=== PATIENT | male | born 1980 | race Caucasian/White ===

== ENCOUNTER → 2016-06-03 | Outpatient (CLI) | payer OTHER ==
--- NOTE | 2016-06-03 15:23 | DX ---
Left Knee, 3 Views with Weightbearing, at 2:47 p.m. Clinical History: 36-year-old male who fell down on his left knee hitting the lateral side, but comp laining of pain along the medial tibial plateau. Rule out fracture. ICD-10 Diagnostic Code: S89.92XA. Comparison Study: None. Findings: Bone mineralization is preserved. There is no acute fracture or dislocation. The tibial pl ateau appears intact. There is some degenerative pinnacling of the medial and lateral tibial spines. Tiny posterior patellar spurs are seen. There is no patellofemoral joint space narrowing, tilting, or subluxation. There is no loose osteochondral body. It is equivocal whether there is a small amount o f fluid in the suprapatellar bursa. Impression: There is no acute osseous abnormality. If there is further clinical concern regarding the patient's knee pain, MR imaging is suggested. Results were discussed with Brigitte Moreno, Nurse Practitioner, at 4:15 p.m. on 06/03/16.
== END ==
LOC: BMCIMAGING 14:43
PROVIDERS: ATTEND Nurse Practitioner Adult Health
DX: M25.562 Pain in left knee (principal)

== ENCOUNTER 2017-04-21 10:57 | Emergency (ER) | payer OTHER ==
[2017-04-21 11:11] VITALS: RESP 16; TEMP 97.7
--- NOTE | 2017-04-21 15:33 | EDPHY ---
H & P Time Seen by Provider: 04/21/17 15:06 HPI/ROS: Chief complaint. Chest and back pain HPI. The patient is a 37-year-old male presents emergency department with 4 day history of burning posterior left shoulder pain that feels like sunburn. However it does radiate to the left anterior chest through the axilla as well. Symptoms are somewhat worse with deep breathing. He feels that he has just felt off with unusual sweating and waking up with drenched in sweat,. Low- grade fever and chills. No cough however. No shortness of breath. The pain is really constant and not worse with exertion. Patient had right Achilles surgery 1 month ago and then has had multiple business traveled plane trips. He was seen at urgent care and diagnosed with shingles but did not develop a rash. He has had shingles previously on his right hip about 2 years ago and this feels quite similar. ROS Constitutional. no fever/chills, no weakness Eyes. no problems with vision ENT. no sore throat, no nasal drainage Cardiovascular. Left chest pain Respiratory. no shortness of breath, no cough Abdominal. no abdominal pain, no nausea/vomiting, no diarrhea . no problems urinating MS. no calf pain/swelling, no neck/back pain, no joint pain Skin. no rash Lymph. no swollen glands Neuro. no headache, no dizziness, no difficulty walking or with speech Past Medical/Surgical History: The shingles in 2014, appendectomy, hernia repair, kidney stones, the knee and Achilles surgery. No significant family history for early coronary artery disease Social History: , nonsmoker, no alcohol Smoking Status: Never smoked Physical Exam: General Appearance: Alert well-developed male mild distress vital signs are stable Eyes: Pupils equal and round no pallor or injection. ENT, Mouth: Mucous membranes are moist. Respiratory: There are no retractions, lungs are clear to auscultation. Cardiovascular: Regular rate and rhythm. Gastrointestinal: Abdomen is soft and nontender, no masses, bowel sounds normal. Neurological: Awake and alert, sensory and motor exams grossly normal. Skin: There is a 1 cm in diameter somewhat vesicular rash to the left posterior shoulder with mild erythema. No other lesions are noted Musculoskeletal: Neck is supple nontender. Extremities symmetrical, full range of motion. Psychiatric: Patient is oriented X 3, there is no agitation. Constitutional: Initial Vital Signs Temperature (C) 36.5 C 04/21/17 11:00 Heart Rate 54 L 04/21/17 11:00 Respiratory Rate 16 04/21/17 11:00 Blood Pressure 146/97 H 04/21/17 11:00 O2 Sat (%) 98 04/21/17 11:00 O2 Delivery Mode Room Air Allergies/Adverse Reactions: No Known Allergies Allergy (Verified 04/21/17 11:06) Home Medications: Medication Instructions Recorded Acyclovir [Zovirax 200 mg (*)] 200 mg PO 04/21/17 FLUoxetine [PROzac] 10 mg PO 04/21/17 oxyCODONE/APAP 5/325 [Percocet 1 tab PO 04/21/17 5/325 (*)] oxyCODONE/APAP 5/325 [Percocet 1 tab PO Q4-6PRN PRN #14 tab 04/21/17 5/325] Medical Decision Making - Diagnostics EKG Interpretation: EKG interpreted by me shows normal sinus rhythm with normal interval and axis. QRS is normal there is no significant ST elevation or depression. There is no arrhythmia. Heart rate is 52 Imaging Results: Imaging Impressions Chest X-Ray 04/21/17 15:28 Impression: Query borderline-cardiac silhouette enlargement (versus "apparent" augmentation secondary to the portable AP technique). Procedures: IV normal saline. ED Course/Re-evaluation: Re-evaluation 5:00 p.m.. Patient is stable. The patient and I discussed imaging lab EKG results. We discussed treatment plan . He expresses understanding and agreement I consulted and discussed the case with Dr. Hull, infectious Disease, who agrees that patient can be symptomatic with shingles and yet not have significant lesions. Differential Diagnosis: I considered pulmonary embolus because of recent surgery and recent travel. I have considered acute coronary syndrome and pneumonia as well. I think this is likely partially treated shingles. - Data Points Laboratory Results: Laboratory Results 04/21/17 15:36 04/21/17 15:36 04/21/17 04/21/17 04/21/17 15:36 15:36 15:36 WBC 8.71 10^3/uL 10^3/uL (3.80-9.50) RBC 5.21 10^6/uL 10^6/uL (4.40-6.38) Hgb 15.8 g/dL g/dL (13.7-17.5) Hct 44.6 % % (40.0-51.0) MCV 85.6 fL fL (81.5-99.8) MCH 30.3 pg pg (27.9-34.1) MCHC 35.4 g/dL g/dL (32.4-36.7) RDW 12.1 % % (11.5-15.2) Plt Count 218 10^3/uL 10^3/uL (150-400) MPV 8.8 fL fL (8.7-11.7) Neut % (Auto) 55.9 % % (39.3-74.2) Lymph % (Auto) 34.7 % % (15.0-45.0) [place] % (Auto) 7.6 % % (4.5-13.0) Eos % (Auto) 0.6 % % (0.6-7.6) Baso % (Auto) 0.5 % % (0.3-1.7) Nucleat RBC Rel Count 0.0 % % (0.0-0.2) Absolute Neuts (auto) 4.88 10^3/uL 10^3/uL (1.70-6.50) Absolute Lymphs (auto) 3.02 10^3/uL H 10^3/uL (1.00-3.00) Absolute Monos (auto) 0.66 10^3/uL 10^3/uL (0.30-0.80) Absolute Eos (auto) 0.05 10^3/uL 10^3/uL (0.03-0.40) Absolute Basos (auto) 0.04 10^3/uL 10^3/uL (0.02-0.10) Absolute Nucleated RBC 0.00 10^3/uL 10^3/uL (0-0.01) Immature Gran % 0.7 % % (0.0-1.1) Immature Gran # 0.06 10^3/uL 10^3/uL (0.00-0.10) D-Dimer < 0.27 ug/mLFEU ug/mLFEU (0.00-0.50) Sodium 144 mEq/L mEq/L (134-144) Potassium 3.6 mEq/L mEq/L (3.5-5.2) Chloride 100 mEq/L mEq/L (97-110) Carbon Dioxide 30 mEq/l mEq/l (22-31) Anion Gap 14 mEq/L mEq/L (8-16) BUN 15 mg/dL mg/dL (7-23) Creatinine 0.9 mg/dL mg/dL (0.7-1.3) Estimated GFR > 60 Glucose 104 mg/dL H mg/dL (70-100) Calcium 9.7 mg/dL mg/dL (8.5-10.4) Troponin I < 0.012 ng/mL ng/mL (0.000-0.034) Departure - Departure Disposition: Home, Routine, Self-Care Clinical Impression: Herpes zoster Qualifiers: Herpes zoster complications: unspecified herpes zoster complication Qualified Code(s): B02.8 - Zoster with other complications Condition: Good Instructions: Shingles (ED) Additional Instructions: Continue Valtrex using 1 g 3 times daily. Oxycodone as needed for pain. Return for worsening symptoms. Follow up with your regular physician or Dr. Hull in the next 1-2 days. I will also give you Dr. Hull the infectious disease physicians name and telephone number. Referrals: UNK,UNK [Other] - As per Instructions Darrel Barrera MD [[facility] Primary Care Provider] - 1-2 days without fail Krish Hull MD [Medical Doctor] - 1-2 days without fail Prescriptions: oxyCODONE/APAP 5/325 [Percocet 5/325] 1 tab PO Q4-6PRN PRN #14 tab PRN Reason: Pain, Moderate
--- NOTE | 2017-04-21 15:42 | CPEKG ---
Heart Rate: 52 RR Interval: 1154 P-R Interval: 164 QRSD Interval: 108 QT Interval: 436 QTC Interval: 406 P [place]: 55 QRS [place]: 51 T Wave [place]: 16 EKG Severity - NORMAL ECG - EKG Impression: SINUS RHYTHM Electronically Signed By: Jhon Zarate 21-Apr-2017 17:57:35
[2017-04-21 15:50] LABS: % IMMATURE GRANULYOCYTES 0.7 % (0.0-1.1); ABSOLUTE IMMATURE GRANULOCYTES 0.06 10^3/uL (0.00-0.10); ADD DIFF? NO; ADD MORPH? NO; ADD SCAN? NO; ATYPICAL LYMPHOCYTE FLAG 0 (0-99); FRAGMENT RBC FLAG 0 (0-99); HEMATOCRIT 44.6 % (40.0-51.0); HEMOGLOBIN 15.8 g/dL (13.7-17.5); LEFT SHIFT FLG 0 (0-99); LIPEMIA HEMOLYSIS FLAG 90 (0-99); MEAN CELL HEMOGLOBIN 30.3 pg (27.9-34.1); MEAN CELL HEMOGLOBIN CONCENTR. 35.4 g/dL (32.4-36.7); MEAN CELL VOLUME 85.6 fL (81.5-99.8); MEAN PLATELET VOLUME 8.8 fL (8.7-11.7); PLATELET CLUMPS FLAG 0 (0-99); PLATELET COUNT 218 10^3/uL (150-400); RED BLOOD CELL COUNT 5.21 10^6/uL (4.40-6.38); RED CELL DISTRIBUTION WIDTH 12.1 % (11.5-15.2)
[2017-04-21 16:02] LABS: ANION GAP 14 mEq/L (8-16); CALCIUM 9.7 mg/dL (8.5-10.4); CARBON DIOXIDE 30 mEq/l (22-31); CHLORIDE 100 mEq/L (97-110); CREATININE 0.9 mg/dL (0.7-1.3); GLOMERULAR FILTRATION RATE > 60; GLUCOSE 104 mg/dL (70-100); POTASSIUM 3.6 mEq/L (3.5-5.2); SODIUM 144 mEq/L (134-144)
[2017-04-21 16:14] LABS: TROPONIN I < 0.012 ng/mL (0.000-0.034)
[2017-04-21 17:36] VITALS: BP 158/98; PULSE 51; O2SAT 95
== END 2017-04-21 17:36 | disposition home or self-care (01) ==
DX: B02.8 Zoster with other complications (principal)

== ENCOUNTER 2018-04-30 16:43 | Emergency (ER) | payer OTHER ==
[2018-04-30] MEDS ORDERED: KETOROLAC 30 MG/1 ML SDV IVP ONE (17:09)
[2018-04-30] MEDS ORDERED: METOCLOPRAMIDE 10 MG/2 ML VIAL IVP ONE (17:09)
[2018-04-30] MEDS ORDERED: DEXAMETHASONE 10 MG/ML VIAL IVP ONE (17:09)
[2018-04-30] MEDS ORDERED: NS 1,000 ML IV ONE (17:09)
[2018-04-30] MEDS ORDERED: DEXAMETHASONE 4 MG/ML VIAL ONE (17:14)
--- NOTE | 2018-04-30 17:15 | EDPHY ---
H & P Stated Complaint: Headache x7 days Time Seen by Provider: 04/30/18 17:01 HPI/ROS: CHIEF COMPLAINT: Headache x7 days HISTORY OF PRESENT ILLNESS: Patient is a 38-year-old man who comes to the emergency department complaining of headache for last 5-7 days. It is not improved despite Tylenol, ibuprofen caffeine. He was on a flight from [facility] to [facility] when it began. He then went to [place] and went to a urgent care who recommended he go to the ER to rule out hemorrhage but he ignored the advice. He returned home today and his who is a nurse here in the OR made him come to the ER. No GI symptoms. No fever. No trauma. The pain is primarily on the left side of his face and occasionally radiates down to his left upper teeth. No dental caries or swelling. No erythema. No tenderness. No claudication. No focal weakness or deficits. No photophobia. No history of migraines. No seizures. States that a few days ago had tingling in both hands. No difficulty ambulating. Severity: Moderate to severe Modifying factors: None REVIEW OF SYSTEMS: Constitutional: denies: chills, fever, recent illness, recent injury EENTM: denies: blurred vision, double vision, nose congestion Respiratory: denies: cough, shortness of breath Cardiac: denies: chest pain, irregular heart rate, lightheadedness, palpitations Gastrointestinal/Abdominal: denies: abdominal pain, diarrhea, nausea, vomiting, blood streaked stools Genitourinary: denies: dysuria, frequency, hematuria, pain Musculoskeletal: denies: joint pain, muscle pain Skin: denies: lesions, rash, jaundice, bruising Neurological: See HPI Hematologic/Lymphatic: denies: blood clots, easy bleeding, easy bruising Immunologic/allergic: denies: HIV/AIDS, transplant 10 systems reviewed and negative except as noted EXAM: GENERAL: Well-appearing, well-nourished and in no acute distress. HEAD: Atraumatic, normocephalic. EYES: Pupils equal round and reactive to light, extraocular movements intact, sclera anicteric, conjunctiva are normal. ENT: TMs normal, nares patent, oropharynx clear without exudates. Moist mucous membranes. NECK: Normal range of motion, supple without lymphadenopathy or JVD. LUNGS: Breath sounds clear to auscultation bilaterally and equal. No wheezes rales or rhonchi. HEART: Regular rate and rhythm without murmurs, rubs or gallops. ABDOMEN: Soft, nontender, normoactive bowel sounds. No guarding, no rebound. No masses appreciated. BACK: No CVA tenderness, no spinal tenderness, step-offs or deformities EXTREMITIES: Normal range of motion, no pitting or edema. No clubbing or cyanosis. NEUROLOGICAL: Cranial nerves II through XII grossly intact. Normal speech, normal gait. 5/5 strength, normal movement in all extremities, normal sensation , normal reflexes PSYCH: Normal mood, normal affect. SKIN: Warm, dry, normal turgor, no visible rashes or lesions. Source: Patient Exam Limitations: No limitations - Personal History Current Tetanus Diphtheria and Acellular Pertussis (TDAP): Unsure - Medical/Surgical History Hx Asthma: No Hx Chronic Respiratory Disease: No Hx Diabetes: No Hx Cardiac Disease: No Hx Renal Disease: No Hx Cirrhosis: No Hx Alcoholism: No Hx HIV/AIDS: No Hx Splenectomy or Spleen Trauma: No Other PMH: appendectomy. hernia repair. kidney stones. knee surgery. shinles on R chest 2014 - Family History Significant Family History: No pertinent family hx - Social History Smoking Status: Never smoked Alcohol Use: Sober Drug Use: None Constitutional: Initial Vital Signs Temperature (C) 36.3 C 04/30/18 16:46 Heart Rate 60 04/30/18 16:46 Respiratory Rate 17 04/30/18 16:46 Blood Pressure 133/90 H 04/30/18 16:46 O2 Sat (%) 96 04/30/18 16:46 O2 Delivery Mode Room Air O2 (L/minute) 2 Allergies/Adverse Reactions: No Known Allergies Allergy (Verified 04/30/18 16:45) Home Medications: Medication Instructions Recorded Citalopram 04/30/18 Clonazepam 04/30/18 Ondansetron Odt [Zofran Odt 4 mg 4 mg PO Q4 PRN #20 tab 04/30/18 (RX)] Propranolol Sr 04/30/18 morphINE IR [morphINE IR 15 mg (*)] 15 mg PO Q3-4PRN PRN #20 tab 04/30/18 Medical Decision Making - Diagnostics Imaging: Discussed imaging studies w/ orthopedically impaired teacher Radiologist ED Course/Re-evaluation: The patient looks very well especially considering the duration of his symptoms. He is alert. No neck stiffness. No fever. No trauma. No infectious symptoms. 7:00 p.m. I discussed the CT results with the patient and his who is a neurosurgery OR nurse. I spoke with Dr. Pompa who requests a MRI with and without to help expedite treatment plan. He also wishes to see him in the office early next week. Patient is feeling much better after Dilaudid. He continues to have normal vision currently. 7:[address] Amrik Katz called and is reviewing the films and also requests a prolactin level. The patient's knows him personally. He will follow up with them. 9:55 p.m. The patient continues to do well. MRIs done. I do not think that the reading will change his disposition. He does not wish to wait. Dr. Katz has reviewed the images and spoken with the patient and his . Will discharge at this time with pain control until he can follow up with Neurosurgery. Differential Diagnosis: Partial list of the Differential diagnosis considered include but were not limited to; tension headache, migraine, tumor, and although unlikely based on the history and physical exam, I also considered thrombus, dissection, hemorrhage, infection. I discussed these differential diagnoses and the plan with the patient as well as the usual and expected course. The patient understands that the diagnosis is provisional and that in medicine we are not always correct and that further workup is often warranted. Usual and customary warnings were given. All of the patient's questions were answered. The patient was instructed to return to the emergency department should the symptoms at all worsen or return, otherwise to followup with the physician as we discussed. - Data Points Laboratory Results: Laboratory Results 04/30/18 17:06 04/30/18 17:06 Medications Given: Discontinued Medications Dexamethasone (Decadron Injection) 10 mg IVP EDNOW ONE Stop: 04/30/18 17:10 Last Admin: 04/30/18 17:19 Dose: 10 mg Hydromorphone HCl (Dilaudid) 1 mg IVP EDNOW ONE Stop: 04/30/18 17:53 Last Admin: 04/30/18 17:54 Dose: 1 mg Hydromorphone HCl (Dilaudid) 1 mg IVP EDNOW ONE Stop: 04/30/18 20:40 Last Admin: 04/30/18 20:46 Dose: 1 mg Sodium Chloride (Ns) 1,000 mls @ 0 mls/hr IV ONCE ONE; Wide Open PRN Reason: Protocol Stop: 04/30/18 17:10 Last Admin: 04/30/18 17:18 Dose: 1,000 mls Ketorolac Tromethamine (Toradol) 15 mg IVP EDNOW ONE Stop: 04/30/18 17:10 Last Admin: 04/30/18 17:22 Dose: 15 mg Metoclopramide HCl (Reglan Injection) 10 mg IVP EDNOW ONE Stop: 04/30/18 17:10 Last Admin: 04/30/18 17:24 Dose: 10 mg Ondansetron HCl (Zofran Odt 4 Mg Prepack#2) 1 btl TAKEHOME EDNOW ONE Stop: 04/30/18 21:58 Last Admin: 04/30/18 22:11 Dose: 1 btl Oxycodone/Acetaminophen (Percocet 5/325mg Prepack#4) 1 btl TAKEHOME EDNOW ONE Stop: 04/30/18 21:58 Last Admin: 04/30/18 22:11 Dose: 1 btl Departure - Departure Disposition: Home, Routine, Self-Care Clinical Impression: Pituitary tumor Headache Qualifiers: Headache type: unspecified Headache chronicity pattern: acute headache Intractability: not intractable Qualified Code(s): R51 - Headache Condition: Fair Instructions: Oxycodone/Acetaminophen (By mouth), Ondansetron (By mouth), Pituitary Adenoma (ED) Referrals: Viktor Rodriguez MD [Medical Doctor] - 2-3 days without fail Prescriptions: morphINE IR [morphINE IR 15 mg (*)] 15 mg PO Q3-4PRN PRN #20 tab PRN Reason: Pain, Severe Ondansetron Odt [Zofran Odt 4 mg (RX)] 4 mg PO Q4 PRN #20 tab PRN Reason: Nausea & Vomiting
[2018-04-30 17:31] LABS: PLATELET COUNT 229 10^3/uL (150-400)
[2018-04-30] MEDS ORDERED: IOPAMIDOL (ISOVUE 370) 100 ML BTL IV ONE (17:51)
[2018-04-30] MEDS ORDERED: HYDROmorphONE/DILAUDID 2 MG/ML INJ IVP ONE ×2 (17:52→20:39)
[2018-04-30] MEDS ORDERED: HYDROmorphONE/DILAUDID 1 MG/ML INJ ONE (17:53)
[2018-04-30] MEDS ORDERED: GADOBUTROL 10 ML VIAL IVP ONE (20:36)
[2018-04-30 21:56] VITALS: BP 131/71
[2018-04-30] MEDS ORDERED: ONDANSETRON 4MG PREPACK#2 BTL TAKEHOME ONE (21:57)
[2018-04-30] MEDS ORDERED: OXYCODONE/APAP 5/325MG PREPACK#4 BTL TAKEHOME ONE (21:57)
== END 2018-04-30 22:19 | disposition home or self-care (01) ==
DX: R51 Headache (principal); D35.2 Benign neoplasm of pituitary gland; E86.9 Volume depletion, unspecified
CPT/HCPCS: 96374; A9585; J1100; J1170; J1885; J2765; Q9967

== ENCOUNTER 2018-05-25 06:19 | Inpatient (IN) | payer OTHER ==
[2018-05-25] MEDS ORDERED: GADOBUTROL 10 ML VIAL IVP ONE ×2 (06:26→07:19)
[2018-05-25] MEDS ORDERED: LIDOCAINE 1% 2 ML INJ ID PRN (07:13)
[2018-05-25] MEDS ORDERED: LR 1,000 ML IV ONE (07:13)
[2018-05-25] MEDS ORDERED: BACITRACIN ZINC 0.5 OZ OINTTUBE TP ONE (07:44)
[2018-05-25] MEDS ORDERED: METHYLENE BLUE 0.5% 50 MG/10 ML AMP ONE (07:45)
[2018-05-25] MEDS ORDERED: EPINEPHrine 30 MG/30 ML MDV (0.1 MG/0.1 ML) ONE (07:45)
[2018-05-25] MEDS ORDERED: LIDO/EPI 1% **Not for Epidural 20 ML MDV ONE ×2 (07:45→10:13)
[2018-05-25] MEDS ORDERED: THROMBIN (BOVINE) 5,000 UNIT VIAL TP ONE (07:45)
[2018-05-25] MEDS ORDERED: ceFAZolin 2 GM/DEXTROSE 100 ML IV ONE ×2 (08:45→08:49)
--- NOTE | 2018-05-25 08:48 | PDHPUP ---
History & Physical Update H&P update statement: This history and physical update is based on an assessment of the patient which was completed after admission or registration (within 24 hours), but prior to the surgery/procedure. H&P update: H&P reviewed & patient examined, no change in patient's condition since H&P completed (new CT and MRI done this am)
[2018-05-25] MEDS ORDERED: ACETAMINOPHEN 500 MG TAB PO ONE (08:49)
[2018-05-25] MEDS ORDERED: ACETAMINOPHEN 500 MG TAB ONE (08:52)
[2018-05-25] MEDS ORDERED: MIDAZOLAM 2 MG/2 ML VIAL IVP ONE (08:55)
--- NOTE | 2018-05-25 08:56 | PDANEPAE ---
ANE Past Medical History - Cardiovascular History Hx Hypertension: No Hx Arrhythmias: No Hx Chest Pain: No Hx Coronary Artery / Peripheral Vascular Disease: No Hx CHF / Valvular Disease: No Hx Palpitations: No - Pulmonary History Hx COPD: No Hx Asthma/Reactive Airway Disease: No Hx Recent Upper Respiratory Infection: No Hx Oxygen in Use at Home: No Hx Sleep Apnea: No Sleep Apnea Screening Result - Last Documented: Negative - Neurologic History Hx Cerebrovascular Accident: No Hx Seizures: No Hx Dementia: No - Endocrine History Hx Diabetes: No Obesity: no - Renal History Hx Renal Disorders: Yes Renal History Comment: HX OF STONES PASSED ON HIS OWN - Liver History Hx Hepatic Disorders: No - Neurological & Psychiatric Hx Hx Neurological and Psychiatric Disorders: Yes Neurological / Psychiatric History Comment: HEADACHES THAT WOULDN'T GO AWAY - Cancer History Hx Cancer: No - Congenital Disorder History Hx Congenital Disorders: No - GI History GERD: mild Hx Gastrointestinal Disorders: Yes Gastrointestinal History Comment: INTERMITTENT HEARTBURN. PREV GI ULCER WILL USE OTC NEEDED - Other Health History Other Health History: RESIDUAL INTERMITTENT PAIN LT NIPPLE/LT BACK REGION POST 2015 HERPES - Chronic Pain History Chronic Pain: No - Surgical History Prior Surgeries: RT ACHILLES TENDON REPAIR 02/2017. VENTRAL HERNIA 2012. APPENDECTOMY ANE Review of Systems Review of Systems: - Exercise capacity METS (RN): 6 METS ANE Patient History - Allergies Allergies/Adverse Reactions: No Known Allergies Allergy (Verified 04/30/18 16:45) - Home Medications Home Medications: Metamucil DAILY 05/21/18 [Last Taken 05/24/18] Zantac PRN 05/21/18 [Last Taken 05/23/18] - NPO status NPO Status: no food or drink >8 hours NPO Since - Liquids (Date): 05/25/18 NPO Since - Liquids (Time): 04:00 NPO Since - Solids (Date): 05/24/18 NPO Since - Solids (Time): 19:00 - Anes Hx Anes Hx: no prior problems - Smoking Hx Smoking Status: Never smoked ANE Labs/Vital Signs - Vital Signs Blood Pressure: 122/84 Heart Rate: 73 Respiratory Rate: 14 O2 Sat (%): 95 Height: 187.96 cm Weight: 88.451 kg ANE Physical Exam - Airway Neck exam: FROM Mallampati Score: Class 1 Mouth exam: normal dental/mouth exam - Pulmonary Pulmonary: no respiratory distress, no rales or rhonchi, clear to auscultation - Cardiovascular Cardiovascular: regular rate and rhythym, no murmur, rub, or gallop - ASA Status ASA Status: II ANE Anesthesia Plan Anesthesia Plan: general endotracheal anesthesia
[2018-05-25] MEDS ORDERED: PROPOFOL 200 MG/20 ML VIAL ONE ×2 (09:19→10:38)
[2018-05-25] MEDS ORDERED: ROCURONIUM 50 MG/5 ML VIAL ONE (09:21)
[2018-05-25] MEDS ORDERED: ONDANSETRON 4 MG/2 ML VIAL ONE (09:21)
[2018-05-25] MEDS ORDERED: DEXAMETHASONE 4 MG/ML VIAL ONE ×2 (09:21)
[2018-05-25] MEDS ORDERED: LIDOCAINE 2% 5 ML SDV ONE (09:38)
[2018-05-25] MEDS ORDERED: HYDROCORTISONE 100 MG/2 ML VIAL ONE (09:57)
[2018-05-25] MEDS ORDERED: DEXMEDETOMIDINE HCL 200 MCG in NS 50 ML IV ONE (10:00)
[2018-05-25] MEDS ORDERED: DEXMEDETOMIDINE HCL 400 MCG in NS 100 ML IV SCH (10:00)
[2018-05-25] MEDS ORDERED: PROMETHAZINE HCL 25 MG/ML INJ IVP PRN ×2 (12:09→12:44)
[2018-05-25] MEDS ORDERED: ONDANSETRON 4 MG/2 ML VIAL IVP PRN ×2 (12:09→12:44)
[2018-05-25] MEDS ORDERED: MEPERIDINE 25 MG/0.5 ML AMP IVP PRN (12:09)
[2018-05-25] MEDS ORDERED: LR 500 ML IV PRN (12:09)
[2018-05-25] MEDS ORDERED: NALOXONE HCL 0.4 MG/ML INJ IVP PRN (12:09)
[2018-05-25] MEDS ORDERED: PHENYLEPHRINE HCL 100 MCG/ML SYR IVP PRN (12:09)
[2018-05-25] MEDS ORDERED: POLYETHYLENE GLYCOL 3350 17 GM PKT PO PRN (12:44)
[2018-05-25] MEDS ORDERED: LACTULOSE 20 GM/30 ML UDCUP PO PRN (12:44)
[2018-05-25] MEDS ORDERED: MAGNESIUM HYDROXIDE 30 ML UDCUP PO PRN (12:44)
[2018-05-25] MEDS ORDERED: BISACODYL 10 MG SUPP PR PRN (12:44)
[2018-05-25] MEDS ORDERED: ONDANSETRON DISINTEGRATING 4 MG TAB PO PRN (12:44)
[2018-05-25] MEDS ORDERED: diphenhydrAMINE 25 MG CAP PO PRN (12:44)
[2018-05-25] MEDS ORDERED: ACETAMINOPHEN 325 MG TAB PO PRN (12:44)
--- NOTE | 2018-05-25 12:47 | POSTANESTH ---
Post Anesthetic Evaluation Cardiovascular Status: Normal, Stable, Similar to Pre-Op Cond Respiratory Status: Normal, Stable, Similar to Pre-op Cond. Level of Consciousness/Mental Status: Can Participate in Eval, Mildly Sleepy, Arousable Pain Control: Inadeq, Add Tx Required Nausea/Vomiting Control: Adequate, Prn Tx Ordered Complications Possibly Related to Anesthesia: None Noted
[2018-05-25] MEDS ORDERED: HYDROmorphONE/DILAUDID 2 MG/ML INJ ONE (12:50)
[2018-05-25] MEDS: HYDROmorphONE/DILAUDID 2 MG/ML INJ IVP PRN ×6 (12:54→13:40)
--- NOTE | 2018-05-25 13:08 | POSTOPPROG ---
Post Op Note Date of Operation: 05/25/18 Surgeon: Joon Sheldon Nuclear Physicist: Dr. Baker- second surgeon Anesthesia: GET(General Endotracheal) Pre-op Diagnosis: Pituitary Mass Post-op Diagnosis: same Procedure: Transphenoidal craniotomy for resection of pituitary tumor Inf/Abcess present in the surg proc area at time of surgery?: No Depth: Organ Space EBL: Minimal SOAP Progress Note Assessment/Plan: Assessment: Plan: 05/25/18 13:01 S: Patient is doing well. Some nasal discomfort as expected O: NAD, VSS No fluid drainage from nose, dried blood noted PERRL, EOMI CN II_XII grossly intact ROB X4 to command A: 38 yo male sp transphenoidal resection of pituitary tumor P: -Admit to ICU -Monitor urine output closely. If urine output > 200 per hour or >400 in 2 hours , order stat serum Na and urine spec grav and call PA with results -Hydrocortisone Taper- starting at 50mg BID X 1 day, then 25 BID X 1 day, then 20 QD until follow up with endocrine on the . -Postop CT in am -PT/OT -No blowing nose, drinking through a straw for 6 weeks. Try to avoid straining, coughing, sneezing -Monitor nose for signs of CSF leak -DVT: TEDs, SCDs, depending on how CT looks, may start Lovenox tomorrow after CT -Seen by Dr. Sheldon in PACU Objective: Vital Signs Temp Pulse Resp BP Pulse Ox 36.4 C 73 12 104/60 96 05/25/18 08:17 05/25/18 08:56 05/25/18 12:56 05/25/18 12:56 05/25/18 12:56
[2018-05-25] MEDS ORDERED: HYDROCODONE/APAP 5/325 TAB ONE (13:46)
[2018-05-25] MEDS ORDERED: fentaNYL 100 MCG/2 ML INJ ONE (13:46)
[2018-05-25] MEDS: fentaNYL 100 MCG/2 ML INJ IVP PRN ×2 (13:48→14:01)
[2018-05-25] MEDS ORDERED: HYDROCODONE/APAP 10/325 TAB ONE (13:50)
[2018-05-25] MEDS: HYDROCODONE/APAP 10/325 TAB PO PRN ×3 (13:55→20:55)
--- NOTE | 2018-05-25 14:58 | GOP ---
DATE OF OPERATION: 05/25/2018 SURGEON: Joon Sheldon MD NEUROSURGEON: Joon Sheldon MD ANESTHESIA: General endotracheal. PREOPERATIVE DIAGNOSIS: Pituitary mass. POSTOPERATIVE DIAGNOSIS: Pituitary mass. PROCEDURE PERFORMED: 1. Endoscopic transsphenoidal resection of pituitary tumor. 2. Use of stealth stereotactic navigation for volumetric gross total resection of tumor. 3. Magnolia of nasal septal flap. FINDINGS: Successful resection of pituitary mass. SPECIMENS: Pituitary tumor. ESTIMATED BLOOD LOSS: 25 cc. 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 After workup for this, I did tell h im it was unlikely that his headaches were stemming from this tumor, but given its size and his young er age, likely should be removed. We discussed all the risks and benefits of transsphenoidal resecti on, including, but not limited to CSF leak and need for further procedures, as well as stroke and ble eding. We also discussed the long-term risks of pituitary dysfunction. He agreed to proceed and we are proceeding electively today. DESCRIPTION OF PROCEDURE: After informed consent was obtained from the patient, the patient was brou ght to the operating room, was placed in a supine position on the operating table. A formal time-out was performed, identifying the patient by name, medical record number, and date of . Preoperat christine antibiotics were given. Endotracheal tube was placed and general endotracheal anesthesia was smo othly induced. Patient was given 100 mg of hydrocortisone preoperatively as well for stress dosing. Dr. Baker performed the first portion of procedure and this was dictated under separate note. The head was kept in a neutral position, and using the endoscope, Dr. Baker gained access to the sp henoid sinus through both nares. A nasal septal flap was elevated on the left side and kept for late r usage. Once she had obtained the exposure, I came into the operating room, and initially, we ident ified both optic carotid recesses and both carotid arteries could be seen pulsating laterally in the posterior aspect of the sphenoid sinus. The navigation was used to identify the midline and a small opening was made in the bone of the sella. Kerrison punches were then used to widen this performing an opening in the sella from cavernous sinus to cavernous sinus and up to the tuberculum sella. The micro Doppler was then used to assure that there was no pulsatile flow, and once this was confirmed, a cruciate incision was made into the dura of the sella using a micro blade. The soft tumor was expr essed immediately. A combination of ring curettes and pituitary forceps were then used to remove the entirety of the soft tumor. We started inferiorly and laterally and then worked our way superiorly. As we worked superiorly, the arachnoid began to billow down and become quite pulsatile. There was some more firm tissue to the left side of the exposure, which did not have the same consistency of th e tumor, and this was thought to likely be the normal pituitary gland. This was left intact. At this point, the arachnoid was inspected. I did not see any evidence of any further tumor within t he sella; therefore, the nose was irrigated. The piece of Surgicel was placed into the dural opening and another piece of Surgicel was used as an external graft to cover the sella. These were then cov ered using DuraSeal. The nasal septal flap was put in place, although no CSF was seen leaking. This was also covered with DuraSeal to keep it in place. At this point, the nose was cleaned by Dr. Ulices rosales. A splint was placed on the nasal septum, and the patient was then awakened in the operating christal m where he was extubated and was transferred to the PACU in stable condition. There were no operativ e complications. I was scrubbed and present for all of my portion of the procedure. CO-SURGEON: Jyoti Baker MD COUNTS: All sponge and needle counts were correct at the end of the case. FLUIDS/URINE OUTPUT: Per the anesthesia record. DRAINS: There were no drains. /[id number]/MODL
[2018-05-25] MEDS: NS W/ 20 KCl/L 1,000 ML IV SCH ×2 (15:15→23:25)
--- NOTE | 2018-05-25 15:15 | PDMN ---
Medical Necessity Medical necessity: MCG: S640 hypophysectomy, nasal approach 1-2 days [facility] INPT only OP: Endoscopic transphenoidal resection of pituitary tumor... AUTH # [id number] FOR CPT [id number]. DONE IN PT.
[2018-05-25] MEDS: HYDROCORTISONE 10 MG TAB PO SCH ×2 (15:22→20:55)
[2018-05-25] MEDS: KETOROLAC 30 MG/1 ML SDV IVP SCH ×2 (16:01→22:39)
[2018-05-25] MEDS: SENNOSIDES/DOCUSATE SODIUM TAB PO SCH (20:54)
[2018-05-25] MEDS: FAMOTIDINE 20 MG TAB PO SCH (20:56)
[2018-05-26] MEDS: KETOROLAC 30 MG/1 ML SDV IVP SCH ×4 (03:47→22:18)
--- NOTE | 2018-05-26 07:14 | PDCONSULT ---
Guest Advisor Note: NEUROSURGERY doing well, no complaints, no headaches AAOx3 visual macias full, CNII-XII normal strength full, no drift sensation normal no sign of CSF leak POD#1 s/p transsphenoidal resection of pituitary mass - doing well, no sign of complication or CSF leak - CT head this morning - ins/outs 3618/1610, continue to monitor for DI, d/c bianchi - continue steroid taper, f/u with endocrine on 06/04 - await pathology - likely can d/c home tomorrow Monalisa
[2018-05-26] MEDS: SENNOSIDES/DOCUSATE SODIUM TAB PO SCH ×2 (08:25→22:17)
[2018-05-26] MEDS: FAMOTIDINE 20 MG TAB PO SCH ×2 (08:26→22:17)
[2018-05-26] MEDS: HYDROCORTISONE 10 MG TAB PO SCH ×2 (08:53→22:18)
[2018-05-26] MEDS ORDERED: clonazePAM 1 MG TAB PO PRN (18:44)
[2018-05-26] MEDS: HYDROCODONE/APAP 10/325 TAB PO PRN (19:13)
[2018-05-27] MEDS: KETOROLAC 30 MG/1 ML SDV IVP SCH ×2 (05:21→10:00)
[2018-05-27 07:54] VITALS: BP 144/89
--- NOTE | 2018-05-27 08:07 | NEUSURGPN ---
Assessment/Plan: Assessment: Plan: 05/25/18 13:01 S: Doing well. Mild headache that is controlled on toradol. Does have some drainage out his nose that is clear and gets worse with walking and has been putting gauze up his nose to help with this. O: NAD, VSS Upon sitting forward some clear fluid draining out of nose, no continuous dripping PERRL, EOMI CN II_XII grossly intact ROB X4 to command A: 38 yo male sp transphenoidal resection of pituitary tumor P: -Doing well overall. Some drainage out of nose. Unlcear if CSF of not. There was no signs of CSF leak during surgery so would be unlikely and could be from flap or from packing that was soaked with saline. Dr. Baker to come assess as well and see. -If no signs of CSF leak then can go home today -Postop CT looks good with expected postoperative changes -Urine output within range, sodium 139. Continue to encourage fluids -Patient will get 1 dose of 25mg today of hydrocortisone and will be sent home on 20mg QD until he meets with endo on the -PT/OT -No blowing nose, drinking through a straw for 6 weeks. Try to avoid straining, coughing, sneezing -DVT: TEDs, SCDs, patient ambulating well no need for lovenox -Discussed with Dr. Sheldon and Dr. Baker Catheter Insertion Date: 05/25/18 - Physician Discussed Patient with Dr.: Sheldon Patient Seen by Dr.: Other (Olivia) Neurosurgery Physical Exam - Vitals, I&O, Labs I and O 05/26/18 05/27/18 05/28/18 05:59 05:59 05:59 Intake Total 3617 2080 Output Total 1610 2825 Balance 2006 Weight 88.451 kg Intake: Oral (ml) 1300 1880 IV Intake (ml) 900 IV Infused (ml) 1417 200 NS W/ 20 KCl/L 1,000 ml @ 1417 200 100 mls/hr IV CONT ISHA Rx#:[id number] Output: Urine (ml) 1560 2825 Catheter 1560 275 Toilet 0 600 Urinal 1950 Estimated Blood Loss (ml) 50 Other: Number of Voids Toilet 2 Urinal 2 Number of Stools Catheter 0 Vital Signs Temp Pulse Resp BP Pulse Ox 36.8 C 59 L 18 144/89 H 92 05/27/18 07:53 05/27/18 07:53 05/27/18 07:53 05/27/18 07:53 05/27/18 07:53 Laboratory Results 05/26/18 05:20 ICD10 Worksheet Patient Problems: Problems Problem Status Onset Headache Acute Pituitary tumor Acute
[2018-05-27] MEDS ORDERED: HYDROCORTISONE 10 MG TAB PO SCH (09:00)
[2018-05-27] MEDS ORDERED: HYDROCORTISONE 10 MG TAB PO ONE (09:00)
[2018-05-27] MEDS: SENNOSIDES/DOCUSATE SODIUM TAB PO SCH (09:19)
[2018-05-27] MEDS: FAMOTIDINE 20 MG TAB PO SCH (09:19)
--- NOTE | 2018-05-27 12:07 | ASMTLACE ---
[facility] Length of stay for Answers: 3 days current admission Acuity / Level of Answers: Yes Care: Did the patient have an inpatient admission? # of Emergency department Answers: 1-2 visits in the last 6 months Score: 7 Date Signed: 05/27/2018 12:06 PM Electronically Signed By:CADE Mitchell
--- NOTE | 2018-05-27 12:10 | ASMTCMCOM ---
CM Note CM Note Notes: Pt had planned resection of pituitary tumor. Pt resides with spouse and minor children. OT/PT rec home. Pt medically stable for d/c, no CM d/c needs identified. Date Signed: 05/27/2018 12:10 PM Electronically Signed By:CADE Mitchell
[2018-05-28] MEDS ORDERED: HYDROCORTISONE 10 MG TAB PO SCH (09:00)
== END 2018-05-27 12:44 | disposition home or self-care (01) | DRG 615 ==
LOC: FIMAGING 06:19 → F2N 14:36 → F3N 05-26 20:18
PROVIDERS: ADMIT Neurological Surgery; ATTEND Neurological Surgery
DX: D35.2 Benign neoplasm of pituitary gland (principal)
CPT/HCPCS: 97161-GP; 97165-GO; A9585; J0171; J0690; J1100; J1170; J1720; J1885; J2250; J2270; J2405; J2704; J3010; Q9968

== ENCOUNTER → 2018-09-08 | Outpatient (CLI) | payer OTHER ==
[~2018-09-08] MED LIST: GADOBUTROL 10 ML VIAL IVP ONE
== END ==
LOC: FIMAGING 08:24
PROVIDERS: ATTEND Physician Assistant
DX: Z09 Encounter for follow-up examination after completed treatment for conditions other than malignant neoplasm (principal); D35.2 Benign neoplasm of pituitary gland
CPT/HCPCS: A9585